=== PATIENT | male | born 1970 | race Caucasian/White ===

== ENCOUNTER → 2020-03-01 | Day surgery (SDC) | payer BC ==
--- NOTE | 2020-02-28 15:20 | NUR ---
Checked patient temperature via skin probe: 98.8F. Patient denies being out of the country in the last 14 days. Patient denies being around anyone who has been out of the country in the last 14 days. Patient denies being around anyone who has been exposed or diagnosed with baron virus in the last 14 days. Patient denies fever, cough, or shortness of breath.
[2020-02-28 17:14] LABS: BASOPHILS # (AUTO) 0.1 (0.0-0.1); BASOPHILS % 0.8 % (0.0-1.0); EOSINOPHILS # (AUTO) 0.3 (0.0-0.4); EOSINOPHILS % 3.5 % (0.0-6.0); HEMATOCRIT 38.9 % (38.2-49.6); HEMOGLOBIN 14.3 g/dL (14.0-18.0); LYMPHOCYTES # (AUTO) 2.1 (1.0-3.2); LYMPHOCYTES % 27.8 % (18.0-39.1); MEAN CORPUSCULAR HEMOGLOBIN 31.8 pg (28-32); MEAN CORPUSCULAR HGB CONC 36.8 g/dL (31-35); MEAN CORPUSCULAR VOLUME 86.6 fL (81-99); MONOCYTES # (AUTO) 0.5 (0.2-0.8); MONOCYTES % 6.4 % (4.4-11.3); NEUTROPHILS # (AUTO) 4.5 (2.1-6.9); NEUTROPHILS % 60.7 % (38.7-80.0); PLATELET COUNT 217 x10e3/uL (140-360); RED BLOOD COUNT 4.49 x10e6/uL (4.3-5.7); RED CELL DISTRIBUTION WIDTH 13.2 % (11.7-14.4)
[2020-02-28 17:20] LABS: ALANINE AMINOTRANSFERASE 28 IU/L (0-55); ALBUMIN 4.2 g/dL (3.5-5.0); ALBUMIN/GLOBULIN RATIO 1.6 (0.8-2.0); ALKALINE PHOSPHATASE 94 IU/L (40-150); ANION GAP 11.3 mmol/L (8-16); BLOOD UREA NITROGEN 12 mg/dL (7-26); BUN/CREATININE RATIO 12 (6-25); CALCIUM 9.1 mg/dL (8.4-10.2); CARBON DIOXIDE 27 mmol/L (22-29); CHLORIDE 105 mmol/L (98-107); CREATININE, SERUM 1.03 mg/dL (0.72-1.25); EST GLOMERULAR FILTRATION RATE > 60 ML/MIN (60-); GLUCOSE 110 mg/dL (74-118); POTASSIUM 3.3 mmol/L (3.5-5.1); SODIUM 140 mmol/L (136-145)
[~2020-03-01] VITALS: Ht 175.3 cm; Wt 99.8 kg
[2020-03-01] VITALS (13 sets, daily range): BP systolic 122–156; BP diastolic 55–78
[~2020-03-01] MED LIST: ASPIRIN 325 MG TAB ONE; BIVALRIUDIN 250 MG/VIAL VIAL IV ONE; DIPHENHYDRAMINE HCL INJ 50 MG/ML VIAL ONE; FENTANYL CITRATE/PF 100MCG/2 ML INJ ONE; HEPARIN SOD (PORCINE) 1000 UNIT/ML 30ML ONE; HEPARIN SOD/SOD CHLORIDE 2,000 ML ONE; IOPAMIDOL 370 MG/ML 200 ML INFUS..BTL INJ ONE; LIDOCAINE HCL 2% LOCAL 20 ML VIAL ONE; LOSARTAN/HCTZ PO; MIDAZOLAM HCL 2 MG/2 ML VIAL ONE; NITROGLYCERIN/D5W 200 MCG/ML 250 ML ONE; PRASUGREL 10 MG TAB ONE; SODIUM CHLORIDE 0.9% 1000ML 1,000 ML ONE; SODIUM CHLORIDE 0.9% 50ML 50 ML ONE; VERAPAMIL HCL 2.5 MG/ML 2 ML VIAL ONE
--- NOTE | 2020-03-01 08:30 | NUR ---
0830am RECEIVING NOTE LITURGICAL MUSIC DIRECTOR RECOVERY DEPT............................................................... Bedside report received from TIMUR Cameron. Identifierx2. Alert oriented and appropriate, PERRLA, respirations even and unlabored to room air. Pulses x4 extremities equal and strong. Pedal pulses PT/DP X4 Cap fill brisk < 3 sec. Rt TR band reduce at 1100am.dc home 1pm. Skin warm and dry integrity appears D/I. IV 20g to left hand, presents healthy w/o s/s of infiltration or complaint. Abdomen soft and supple. pt offered toileting, denies need to urinate or defecate. No personal affects with patient. Family, [phone]. Pt and family verbalizes understanding of POC. Currently w/o complaint of pain or need. ds/rn -
--- NOTE | 2020-03-01 10:48 | Operative Report ---
DATE OF PROCEDURE: 03/01/2020 SURGEON: Chet Garcia MD INDICATION: Coronary artery disease, unstable angina with abnormal stress test. COMPLICATIONS: None. BLOOD LOSS: Minimal. RECOMMENDATIONS: Aggressive medical therapy, dual antiplatelet therapy for life. PROCEDURES PERFORMED: 1. Left heart catheterization, selective coronary angiography. 2. Stent placement to the circumflex artery. 3. Ultrasound-guided access in the right radial artery. 4. Conscious sedation administration. Hemodynamic neurological monitoring and recovery by roofing laborer RN with supervision by for 65 minutes. DESCRIPTION OF PROCEDURE: Access obtained in the right radial artery. Using ultrasound guidance, a 5-Bolivian sheath was placed. The patient received Angiomax for anticoagulation. Left main, mild disease. Left anterior descending artery, proximal and mid mild 20% to 30% stenosis. Diagonal artery 2 mm, 90% stenosis. Distal left anterior descending artery, diffuse 50% to 70% stenosis, 2 mm vessel. Circumflex, 70% distally, 2 mm vessel. Obtuse marginal branch, 80% stenosis. Right coronary artery, diffuse 20%. Right posterior descending artery, 70% stenosis, 2 mm vessel. A decision was made to intervene on the circumflex artery. The patient's left main was cannulated using an EBU 3.75, 5-Bolivian guiding catheter. Short Runthrough wire was advanced. A single 2.75 x 20 mm Synergy stent was deployed at 18 atmospheres. Excellent end result, less than 10% residual stenosis, MARTINA-3 flow. No complications. Circumflex was jailed within the deployed stent, but was widely patent ostium. No other intervention deemed necessary. Right wrist wire and guide sheath removed. TR band applied. The patient discharged home same day. Chet Garcia MD [facility] /[id number]
--- NOTE | 2020-03-01 11:00 | NUR ---
1100am RADIAL COMPRESSION REMOVAL NOTE: Initial Cuff volume -13cc 11:00a -3cc Removed No hematoma/bleeding noted with normal neurovascular function. 11:15a -5cc Removed No hematoma/ bleeding noted with normal neurovascular function. 11:30a -5cc Removed No hematoma/bleeding noted with normal neurovascular function. Air removal completed. Stasis achieved sterile 2x2,Tegaderm, Coban dressing No hematoma, bleeding noted with normal neurovascular function. Wrist splint in place. Pt instructed on POC. Ds/Rn
--- NOTE | 2020-03-01 13:00 | NUR ---
1300pm PROP MAKING SUPERVISOR RECOVERY DISCHARGE NURSING NOTE Pt meets DC criteria. Rt arm access assessed for s/s of complication and presence of hematoma. Skin warm, dry, no discolor, and pulses present. IV removed from left hand. Distal tip appears intact. VS WNL. Pt denies pain, sob, or need at this time. Family at Bedside. Review of discharge paperwork and follow up instructions. verbalized understanding. Pt to wheelchair and transported to front of hospital. Transferred to private vehicle under own strength w/o incident with DC paperwork in hand. - jhonny/angi
== END | disposition home or self-care (01) ==
LOC: CATH LAB 06:30
PROVIDERS: ATTEND Internal Medicine Interventional Cardiology
DX: I25.110 Atherosclerotic heart disease of native coronary artery with unstable angina pectoris (principal); R94.39 Abnormal result of other cardiovascular function study; Z01.812 Encounter for preprocedural laboratory examination
CPT/HCPCS: 36415; 76937; 80053; 85025; 92928; 93454; C1769 ×2; C1874; C1887; J0583; J1200; J1644; J2001; J2250; J3010; J7030; Q9967; 99152; 99153

== ENCOUNTER 2020-03-09 00:32 | Emergency (ER) | payer BC ==
[~2020-03-09] VITALS: Ht 175.3 cm; Wt 99.8 kg
[~2020-03-09 00:32] MED LIST changes: -ASPIRIN 325 MG TAB ONE; -BIVALRIUDIN 250 MG/VIAL VIAL IV ONE; -DIPHENHYDRAMINE HCL INJ 50 MG/ML VIAL ONE; -FENTANYL CITRATE/PF 100MCG/2 ML INJ ONE; -HEPARIN SOD (PORCINE) 1000 UNIT/ML 30ML ONE; -HEPARIN SOD/SOD CHLORIDE 2,000 ML ONE; -IOPAMIDOL 370 MG/ML 200 ML INFUS..BTL INJ ONE; -LIDOCAINE HCL 2% LOCAL 20 ML VIAL ONE; -MIDAZOLAM HCL 2 MG/2 ML VIAL ONE; -NITROGLYCERIN/D5W 200 MCG/ML 250 ML ONE; -PRASUGREL 10 MG TAB ONE; -SODIUM CHLORIDE 0.9% 1000ML 1,000 ML ONE; -SODIUM CHLORIDE 0.9% 50ML 50 ML ONE; -VERAPAMIL HCL 2.5 MG/ML 2 ML VIAL ONE
[2020-03-09] MEDS ORDERED: ASPIRIN 81 MG CHEW TAB PO ONE (00:45)
[2020-03-09 01:00] LABS: BASOPHILS # (AUTO) 0.1 (0.0-0.1); BASOPHILS % 0.7 % (0.0-1.0); EOSINOPHILS # (AUTO) 0.2 (0.0-0.4); EOSINOPHILS % 1.8 % (0.0-6.0); HEMATOCRIT 40.9 % (38.2-49.6); HEMOGLOBIN 14.7 g/dL (14.0-18.0); LYMPHOCYTES # (AUTO) 3.1 (1.0-3.2); LYMPHOCYTES % 34.4 % (18.0-39.1); MEAN CORPUSCULAR HEMOGLOBIN 31.1 pg (28-32); MEAN CORPUSCULAR HGB CONC 35.9 g/dL (31-35); MEAN CORPUSCULAR VOLUME 86.5 fL (81-99); MONOCYTES # (AUTO) 0.7 (0.2-0.8); MONOCYTES % 7.7 % (4.4-11.3); NEUTROPHILS # (AUTO) 4.9 (2.1-6.9); NEUTROPHILS % 55.1 % (38.7-80.0); PLATELET COUNT 210 x10e3/uL (140-360); RED BLOOD COUNT 4.73 x10e6/uL (4.3-5.7)
[2020-03-09 01:05] LABS: INR 1.04; PROTHROMBIN TIME 14.2 seconds (11.9-14.5)
[2020-03-09 01:18] LABS: ALANINE AMINOTRANSFERASE 28 IU/L (0-55); ALBUMIN 4.7 g/dL (3.5-5.0); ALBUMIN/GLOBULIN RATIO 1.9 (0.8-2.0); ALKALINE PHOSPHATASE 93 IU/L (40-150); ANION GAP 16.2 mmol/L (8-16); BLOOD UREA NITROGEN 21 mg/dL (7-26); BUN/CREATININE RATIO 18 (6-25); CALCIUM 9.7 mg/dL (8.4-10.2); CARBON DIOXIDE 27 mmol/L (22-29); CHLORIDE 99 mmol/L (98-107); CREATINE KINASE 185 IU/L (30-200); CREATININE, SERUM 1.18 mg/dL (0.72-1.25); EST GLOMERULAR FILTRATION RATE > 60 ML/MIN (60-); GLUCOSE 103 mg/dL (74-118); POTASSIUM 3.2 mmol/L (3.5-5.1); SODIUM 139 mmol/L (136-145)
--- NOTE | 2020-03-09 02:55 | Diagnostic Imaging Report ---
EXAMINATION: CHEST SINGLE (PORTABLE) INDICATION: Right sided chest pain. COMPARISON: Chest radiograph 12/26/2019. FINDINGS: TUBES and LINES: None. LUNGS: Lungs are well inflated. There is no evidence of pneumonia or pulmonary edema. PLEURA: No pleural effusion or pneumothorax. HEART AND MEDIASTINUM: The cardiomediastinal silhouette is unremarkable. BONES AND SOFT TISSUES: No acute osseous lesion. Soft tissues are unremarkable. UPPER ABDOMEN: No free air under the diaphragm. IMPRESSION: No acute thoracic abnormality. Signed by: Dr. Leatha Pappas MD on 03/09/2020 2:51 AM
[2020-03-09 04:59] LABS: CREATINE KINASE 150 IU/L (30-200)
[2020-03-09 05:32] VITALS: BP 120/72
== END 2020-03-09 05:48 | disposition home or self-care (01) ==
LOC: ER 00:32
DX: R07.89 Other chest pain (principal)
CPT/HCPCS: 36415; 71045; 80053; 82550; 82553; 83880; 84484; 85025; 85610; 93005; 99284

== ENCOUNTER 2020-06-06 20:26 | Emergency (ER) | payer BC | END 2020-06-06 20:34 | disposition left against medical advice (07) | LOC: FSED 20:33 | DX: R07.9 Chest pain, unspecified (principal) ==

== ENCOUNTER → 2021-02-20 | Outpatient (CLI) | payer BC | LOC: RAD 12:16 | PROVIDERS: ATTEND Internal Medicine | DX: J15.9 Unspecified bacterial pneumonia (principal) | CPT/HCPCS: 71046 ==

== ENCOUNTER → 2021-12-26 | Outpatient (CLI) | payer OTHER | LOC: RAD 14:01 | PROVIDERS: ATTEND Internal Medicine | DX: J40 Bronchitis, not specified as acute or chronic (principal) | CPT/HCPCS: 71046 ==

== ENCOUNTER → 2025-03-29 | Outpatient (REF) | payer BC | LOC: RAD 13:33 | PROVIDERS: ATTEND Internal Medicine | DX: J18.9 Pneumonia, unspecified organism (principal) | CPT/HCPCS: 71046 ==